=== PATIENT | female | born 2000 | race Caucasian/White ===

== ENCOUNTER 2020-05-02 10:44 | Emergency (ER) | payer OTHER ==
[~2020-05-02] VITALS: Ht 167.6 cm; Wt 113.4 kg
[2020-05-02] MEDS ORDERED: TESTOSTERONE (11:11)
[2020-05-02 11:50] LABS: ABSOLUTE EOSINOPHILS 0.1 thou/uL (0.0-0.7); ABSOLUTE LYMPHOCYTES 1.7 thou/uL (0.8-5.3); ABSOLUTE MONOCYTES 0.4 thou/uL (0.0-1.2); ABSOLUTE NEUTROPHILS 4.5 thou/uL (1.6-8.1); BASOPHILS 0.7 %; EOSINOPHILS 1.1 %; HEMATOCRIT 44.5 % (37.0-47.0); HEMOGLOBIN 15.2 gm/dL (12.0-15.0); LYMPHOCYTES 25.7 %; MCH 29.4 pg (26.0-34.0); MCHC 34.2 g/dL (28.0-37.0); MCV 86.1 fL (80.0-100.0); MONOCYTES 6.3 %; MPV 8.4 fl. (7.2-11.1); NUCLEATED RBCS 0 /100WBC; PLATELET COUNT* 296 thou/uL (150-400); POLYS 66.2 %; RBC 5.17 mil/uL (4.20-5.00); RDW-CV 13.5 % (10.5-14.5); WBC 6.8 thou/uL (4.0-11.0)
[2020-05-02 12:01] LABS: CALCIUM 8.7 mg/dL (8.5-10.1); CREATININE 0.9 mg/dL (0.6-1.3); POTASSIUM 3.7 mmol/L (3.5-5.1)
[2020-05-02 12:02] LABS: APTT 28.2 Seconds (25.0-31.3); PROTIME 10.1 Seconds (9.20-11.50)
[2020-05-02 12:12] LABS: ALBUMIN 3.6 g/dL (3.4-5.0); TOTAL BILIRUBIN 0.4 mg/dL (<0.1-1.0); TOTAL PROTEIN 7.9 g/dL (6.4-8.2)
[2020-05-02 13:00] LABS: URINE BILIRUBIN NEGATIVE (Negative); URINE BLOOD 3+ (Negative); URINE CLARITY CLEAR; URINE COLOR YELLOW; URINE GLUCOSE-RANDOM NEGATIVE (Negative); URINE KETONES NEGATIVE (Negative); URINE LEUKOCYTES-REFLEX 1+ (Negative); URINE NITRITE-REFLEX NEGATIVE (Negative); URINE PROTEIN TRACE (Negative); URINE SPECIFIC GRAVITY 1.025 (1.005-1.030); URINE UROBILINOGEN 0.2 E.U./dl (0.2-1.0)
[2020-05-02 13:11] LABS: BACTERIA-REFLEX >30 Many /HPF (None Seen); CASTS None Seen /LPF (None Seen); CRYSTALS None Seen /LPF (None Seen); MUCUS >6 Heavy strn/LPF (None Seen); SQUAMOUS >10 Many /LPF (0-3); URINE RBC 3-10 Few /HPF (0-2); URINE WBC-REFLEX 6-15 Few /HPF (0-5)
[2020-05-02] MEDS ORDERED: BACTRIM DS TAB1 EAC1 PO (13:31)
[2020-05-02 13:59] VITALS: BP 119/71
--- NOTE | 2020-05-04 16:51 | EKG ---
[place] [address] ELECTROCARDIOGRAM REPORT Name: JOAN GIFFORD Room: [facility]#: [id number] Admission: 05/02/20 Attend Phys: Discharge: 05/02/20 Date of : 89 Date of Service: 05/02/20 1123 Report #: [id number] THIS REPORT FOR: //name// [facility] ED Test Date: 2020-05-02 Test Time: 11:23:14 Pat Name: JOAN GIFFORD Department: Room: Gender: F Director E Learning: [facility] : 2000 Requested By: Homero Alfaro Order Number: [id number] MD: Angel Fuller Measurements Intervals [place] Rate: 93 P: 45 NE: 146 QRS: 47 QRSD: 83 T: 30 QT: 345 QTc: 430 Interpretive Statements Sinus rhythm No previous ECG available for comparison Electronically Signed On 05-04-2020 16:51:44 CDT by Angel Fuller [email or web address] <ELECTRONICALLY SIGNED> By: Angel Fuller MD, [facility] 05/04/20 1651 1123 22 Angel Fuller MD, FACC /EPI
== END 2020-05-02 13:59 | disposition home or self-care (01) ==
LOC: M.ERS 10:44
PROVIDERS: Emergency Medicine Emergency Medical Services
DX: N39.0 Urinary tract infection, site not specified (principal); R42 Dizziness and giddiness; Z88.1 Allergy status to other antibiotic agents